=== PATIENT | female | born 2000 | race Caucasian/White ===

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

== ENCOUNTER 2021-06-21 10:42 | Inpatient (IN) | payer MEDICAID, OTHER ==
--- NOTE | 2021-06-21 11:09 | ED ---
General Adult HPI - General Stated complaint: mental health Time Seen by Provider: 06/21/21 10:43 Source: patient, RN notes reviewed, old records reviewed - History of Present Illness Initial comments: 20 yo female presenting for mental health evaluation. Patient had barricaded herself in the bathroom with a razor blade. She did not inflict any self-harm. She was uncooperative requiring police support during transport. She was transported by EMS. She denies ingestion. She is alert and oriented to time my evaluation. She has been petitioned by her grandmother for psychiatric evaluation. - Related Data Home Medications Medication Instructions Recorded Confirmed Escitalopram [Lexapro] 10 mg PO DAILY 06/21/21 06/21/21 Naproxen 500 mg PO BID 06/21/21 06/21/21 traMADol HCL 50 mg PO Q8H PRN 06/21/21 06/21/21 Allergies Allergy/AdvReac Type Severity Reaction Status Date / Time No Known Allergies Allergy Unverified 06/21/21 12:52 Review of Systems ROS Statement: Those systems with pertinent positive or pertinent negative responses have been documented in the HPI. ROS Other: All systems not noted in ROS Statement are negative. General Exam Limitations: physical limitation (She refuses physical exam) General appearance: alert Head exam: Present: atraumatic, normocephalic Eye exam: Present: normal appearance Neck exam: Present: normal inspection Respiratory exam: Absent: respiratory distress GI/Abdominal exam: Absent: distended Extremities exam: Present: normal inspection Neurological exam: Present: alert, oriented X3 Psychiatric exam: Present: agitated, anxious, suicidal ideation Skin exam: Present: warm, dry, intact Course Vital Signs 06/21/21 10:58 Pulse Rate 90 Respiratory 18 Rate Blood Pressure 132/74 O2 Sat by Pulse 100 Oximetry - Reevaluation(s) Reevaluation #1: 06/21/21 11:09 Clear for EPS Medical Decision Making - Medical Decision Making 20-year-old female presenting with depression, suicidal ideation. Initially not cooperative. She is petitioned. She is evaluated by EPS and felt to require i npatient psychiatric evaluation treatment. I do agree with this assessment. I completed a clinical certification on this patient. She will be admitted to this institution. Disposition Clinical Impression: Depression, Attempted suicide, Suicidal ideation Disposition: ADMITTED IP TO THIS HOSP Condition: Stable Is patient prescribed a controlled substance at d/c from ED?: No Referrals: Jose Martin Miles MD [Primary Care Provider] - 1-2 days Decision to Admit Reason: Admit from EC Decision Date: 06/21/21 Decision Time: 13:17
[2021-06-21] MEDS ORDERED: LORazepam 1 MG TAB PO STA (13:12)
[2021-06-21 13:29] LABS: Amphetamine Screen,Urine Not Detected (NotDetected); Barbiturate Screen,Urine Not Detected (NotDetected); Benzodiazepines Screen,Urine Not Detected (NotDetected); Cocaine Screen,Urine Not Detected (NotDetected); Methadone Screen, Urine Not Detected (NotDetected); Opiate Screen,Urine Not Detected (NotDetected); Oxycodone Screen, Urine Not Detected (NotDetected); Phencyclidine Screen,Urine Not Detected (NotDetected); Tricyclic Antidepressant,Urine Not Detected (NotDetected); Urn Cannabinoid Scrn Detected (NotDetected)
[2021-06-21] MEDS ORDERED: LORazepam 2 MG/ML INJ IM STA ×2 (14:43→18:55)
[2021-06-21] MEDS ORDERED: MAGNESIUM HYDROXIDE 2,400 MG/10 ML CUP PO PRN (15:03)
[2021-06-21] MEDS ORDERED: MAG HYDROX/AL HYDROX/SIMETH 30 ML CUP PO PRN (15:03)
[2021-06-21] MEDS ORDERED: HALOPERIDOL LACTATE 5 MG/ML 1 ML VIAL IM PRN (15:06)
[2021-06-21] MEDS ORDERED: haloperidoL 1 MG TAB PO PRN (15:06)
[2021-06-21] MEDS ORDERED: hydrOXYzine pamoate 25 MG CAP PO PRN (15:07)
[2021-06-21 15:52] LABS: Appearance,Urine Cloudy (Clear); Bacteria,Urine Rare /hpf; Bilirubin,Urine Negative (Negative); Blood,Urine Negative (Negative); Color,Urine Light Yellow; Glucose,Urine (UA) Negative (Negative); Hyaline Casts,Urine 1 /lpf (0-2); Ketones,Urine Negative (Negative); Leukocyte Esterase,Urine Negative (Negative); Mucus,Urine Rare /hpf; Nitrite,Urine Negative (Negative); PH, Urine 5.5 (5.0-8.0); Protein,Urine Negative (Negative); RBC,Urine 2 /hpf (0-5); Specific Gravity,Urine 1.015 (1.001-1.035); Squamous Epithelial Cell,Urine 9 /hpf (0-4); Urobilinogen,Urine <2.0 mg/dL (<2.0); WBC,Urine 7 /hpf (0-5)
[2021-06-21] MEDS ORDERED: chlorproMAZINE 25 MG/ML 2 ML AMP IM STA (18:55)
[2021-06-21] MEDS ORDERED: LORazepam 2 MG/ML INJ IM PRN (18:55)
[2021-06-21] MEDS ORDERED: LORazepam 1 MG TAB PO PRN (18:57)
[2021-06-21] MEDS ORDERED: chlorproMAZINE 25 MG TAB PO PRN (18:58)
[2021-06-21] MEDS ORDERED: chlorproMAZINE 25 MG/ML 2 ML AMP IM PRN (18:58)
--- NOTE | 2021-06-21 19:40 | P.MHFACE ---
Face to Face Restrain/Seclus - Evaluation Patient's Immediate Situation: Endangers self safety, Endangers others' safety, Endangers staff safety Patient's Immediate Situation - Comment: Discussed the case with the U RNs. The patient was seen at the bedside. The patient was reportedly being physically agressive, slamming objects against the garcia, and threatening to hurt the staff. Patient's Reaction to the Intervention: Appropriate, Calm Need to Continue or Terminate Restraint or Seclusion: Terminate Need to Continue or Terminate Restraint/Seclusion - Comment: Discussed with the patient the need to cooperate with the staffs instructions. The staff and the patient were able to come to agreement that her restraints can be discontinued. Face to Face Eval of Restraint Date: 06/21/21 Face to Face Eval of Restraint Time: 19:05
--- NOTE | 2021-06-22 07:43 | P.CON ---
Consult Note - . Consult date: 06/22/21 Assessment/Plan:: Medical consultation HPI 20-year-old female presented to the emergency department for mental health evaluation. Review of emergency room notes patient had barricaded herself in the bathroom with a razor blade, she did not inflict any self-harm during the episode. She was uncooperative coronary please for support for transport to the hospital. Patient was petitioned by grandmother for bizarre behavior over the last few days. 06/22/2021 Patient resting comfortably in bed. Patient answering questions with few word sentences. Patient moderate cooperative regarding events that occurred prior to admission to psychiatric unit. Patient denies fever, chills, chest pain, palpitations, shortness of breath, abdominal pain, nausea or vomiting diarrhea at this time. Patient agreeable to have diagnostic labs drawn. Physical exam General appearance: alert Head exam: Present: atraumatic, normocephalic Eye exam: Present: normal appearance Neck exam: Present: normal inspection Respiratory exam: Absent: respiratory distress GI/Abdominal exam: Absent: distended Extremities exam: Present: normal inspection Neurological exam: Present: alert, oriented X3 Psychiatric exam: Present: Anxious Skin exam: Present: warm, dry, intact Assessment: Depression Attempted suicide Suicidal ideation Plan: Obtain diagnostic labs to rule out metabolic causes for acute depression and suicidal ideation Once diagnostic labs are back we will review patient will be medically cleared We'll follow as an as needed basis
[2021-06-22] MEDS ORDERED: QUEtiapine 25 MG TAB PO PRN (11:20)
--- NOTE | 2021-06-22 11:34 | P.HP ---
Psychiatric H&P - . H&P Date: 06/22/21 History & Physical: Allergies Allergy/AdvReac Type Severity Reaction Status Date / Time No Known Allergies Allergy Unverified 06/21/21 12:52 Vital Signs Temp Pulse 122 H 06/21/21 18:43 Resp 20 06/21/21 18:43 BP 102/51 06/21/21 18:43 Pulse Ox 99 06/21/21 18:43 Intake & Output 06/21/21 06/22/21 06/22/21 18:59 06:59 18:59 Weight 40.823 kg Laboratory Last Values Urine Color Light Yellow 06/21/21 12:21 Urine Appearance Cloudy (Clear) H 06/21/21 12:21 Urine pH 5.5 (5.0-8.0) 06/21/21 12:21 Ur Specific [place] 1.015 (1.001-1.035) 06/21/21 12:21 Urine Protein Negative (Negative) 06/21/21 12:21 Urine Glucose (UA) Negative (Negative) 06/21/21 12:21 Urine Ketones Negative (Negative) 06/21/21 12:21 Urine Blood Negative (Negative) 06/21/21 12:21 Urine Nitrite Negative (Negative) 06/21/21 12:21 Urine Bilirubin Negative (Negative) 06/21/21 12:21 Urine Urobilinogen <2.0 mg/dL (<2.0) 06/21/21 12:21 Ur Leukocyte Esterase Negative (Negative) 06/21/21 12:21 Urine RBC 2 /hpf (0-5) 06/21/21 12:21 Urine WBC 7 /hpf (0-5) H 06/21/21 12:21 Ur Squamous Epith Cells 9 /hpf (0-4) H 06/21/21 12:21 Urine Bacteria Rare /hpf (None) H 06/21/21 12:21 Hyaline Casts 1 /lpf (0-2) 06/21/21 12:21 Urine Mucus Rare /hpf (None) H 06/21/21 12:21 Urine HCG, Qual Not Detected (Not Detectd) 06/21/21 12:21 Urine Opiates Screen Not Detected (NotDetected) 06/21/21 12:21 Ur Oxycodone Screen Not Detected (NotDetected) 06/21/21 12:21 Urine Methadone Screen Not Detected (NotDetected) 06/21/21 12:21 Ur Propoxyphene Screen Not Detected (NotDetected) 06/21/21 12:21 Ur Barbiturates Screen Not Detected (NotDetected) 06/21/21 12:21 U Tricyclic Antidepress Not Detected (NotDetected) 06/21/21 12:21 Ur Phencyclidine Scrn Not Detected (NotDetected) 06/21/21 12:21 Ur Amphetamines Screen Not Detected (NotDetected) 06/21/21 12:21 U Methamphetamines Scrn Not Detected (NotDetected) 06/21/21 12:21 U Benzodiazepines Scrn Not Detected (NotDetected) 06/21/21 12:21 Urine Cocaine Screen Not Detected (NotDetected) 06/21/21 12:21 U Marijuana (THC) Screen Detected (NotDetected) H 06/21/21 12:21 Coronavirus (PCR) Not Detected (Not Detectd) 06/21/21 14:01 06/22/21 11:25 IDENTIFYING DATA: Patient is a 20-year-old female who currently lives with her grandmother and mother and sisters in a house, currently works in a factory is unmarried and has no kids. HPI: Patient presented to the hospital yesterday by police escort and a petition filled out by grandmother. According to petition claims that her "multiple times she has threatened to kill herself. She had a razor blade in hand while threatening to kill herself. She has delusions and throws tantrums. Rage!" P etition also states that patient has been threatening to kill herself and has been throwing things in the house. Patient apparently was fairly aggressive with law enforcement and also when admitted to the unit involuntarily. Patient was given Thorazine and placed in restraints last night. Patient was seen by magazine writer this morning and agreeable to speak in the office. She has a UDS which is positive for marijuana. She claims that she "snapped at my family" and states that she is feeling pissed off. She states that she is "tired of they're bULLSHIT". Patient claims that her younger sister has been stealing her things and that she has been having several issues with her sister and also her mom and grandmother. She claims that all her belongings were broken including her bong. She claims that her mom is not supportive of her feelings and her situation and lets her and her sister fight. She states that she feels that no one cares about her feelings. She had rapid speech, was tangential and fairly intrusive and loud during the interview. She was labile as well and tearful and pleaded with magazine writer several times to be discharged today. She did admit to getting a razor blade and threatening to kill herself however states that she did not mean it and threw them away. She claims that she is filing charges against the police as they were aggressive with her. She claims that her mood is "fine" however with an incongruent affect. She is denying any anxiety at this time. She claims that her sleep and appetite are fair. Patient denies any suicidal or homicidal ideations intent or plan. At this time patient denies any auditory or visual hallucinations. she doess describe aa history of poor frustrartion tolerance and manic type episodes with mood swings. Patient admits to using marijuana heavily since the age of 15 every day. She denies any other recreational drug use. PAST PSYCHIATRIC HISTORY: Patient states that she has no psychiatric history. she claims that her pcp put her on lexapro 10 mg daily for her anxiety however states that shes been off it for 1 week as it was making her feel worst. Patient denies any previous psychiatric hospitalizations. She states that she went to [facility] dialysis social worker to times in the past for therapy. Patient denies any history of suicide attempts in the past. PMH:denies ALLERGIES: as per EMR CHEMICAL DEPENDENCY HISTORY: as per HPI FAMILY PSYCHIATRIC/SUBSTANCE USE HISTORY: States that her uncle committed suicide. SOCIAL HISTORY: Patient was born and raised in [place] [place]. She states that she completed high school. She claims that she is currently working at a factory. She has plans to go to University afterwards. She currently lives with her grandmother mother in a house. She is unmarried and has no kids. She denies any legal history. MENTAL STATUS EXAM: General Appearance: Patient appears to be short in stature, disheveled, stated age is alert, intrusive and aggressive at times. Patient appears to have poor hygiene and grooming. Behavior: Patient is seated. Aggressive and difficult to redirect Speech: Patient's speech is fluent and nonpressured. Rapid speech. Mood/Affect: Patient reports their mood is "okay", affect is incongruent and labile Suicidality/Homicidality: Patient denies having any homicidal ideation intent or plan. Denies any suicidal ideations intent or plan Perceptions: Patient denies any visual hallucinations and denies any auditory hallucinations Though content/process: focused on discharge, poor insight, rambles, tangential. Memory and concentration: AOX3, grossly intact for the purposes of this session. Can spell "WORLD" backwards Judgment and insight: poor STRENGTHS/WEAKNESSES: strength is that patient is resilient. Weakness is that patient has poor judgment and is impulsive INTELLECT: average IMPRESSIONS: Bipolar disorder, current episode manic, without psychotic features Cannabis use disorder PLAN: -Patient is admitted under involuntary status to [facility] for stabilization of psychiatric symptoms and safety. Patient has not signed adult voluntary form and medication consent and is placed in patient's chart. A second certification was completed and along with petition will be filed for court. -Medications : Will start patient on Seroquel 25 mg daily at bedtime for insomnia/mood stabilization with 25 mg when necessary. Start lithium 150 mg 3 times a day for mood stabilization. -Ativan and Thorazine PRN for agitation/aggression -Patient was informed of the risks, benefits and side effects of the medication -Internal Medicine consult to perform medical evaluation and physical. -NRT - not needed as patient does not smoke -SW on board for discharge planning. Encourage patient to participate in groups to work on coping skills. Will await deferral and court date.
[2021-06-22] MEDS: LITHIUM CARBONATE 150 MG CAP PO SCH ×3 (12:15→21:00)
[2021-06-22 13:02] VITALS: BMI 18.8
[2021-06-22] MEDS: QUEtiapine 25 MG TAB PO SCH (21:00)
[2021-06-23] MEDS: LITHIUM CARBONATE 150 MG CAP PO SCH ×3 (08:21→21:08)
[2021-06-23 08:46] LABS: Basophils % (A) 0 %; Eosinophils # (A) 0.2 k/uL (0-0.7); Eosinophils % (A) 1 %; HCT 45.2 % (34.0-46.0); HGB 15.1 gm/dL (11.4-16.0); Lymphocytes # (A) 2.6 k/uL (1.0-4.8); Lymphocytes % (A) 22 %; MCH 31.2 pg (25.0-35.0); MCHC 33.3 g/dL (31.0-37.0); MCV 93.6 fL (80.0-100.0); Monocytes # (A) 0.5 k/uL (0-1.0); Monocytes % (A) 4 %; Neutrophils # (A) 8.1 k/uL (1.3-7.7); Neutrophils % (A) 71 %; Platelet Count 272 k/uL (150-450); RBC 4.83 m/uL (3.80-5.40); RDW 12.1 % (11.5-15.5); WBC 11.5 k/uL (4.0-11.0)
[2021-06-23 08:57] LABS: ALT 26 U/L (4-34); AST 67 U/L (14-36); African American GFR (CKD) >90 (>60 ml/min/1.73 sqM); Albumin 4.6 g/dL (3.5-5.0); Alkaline Phosphatase 64 U/L (38-126); Anion Gap 12 mmol/L; Blood Urea Nitrogen 16 mg/dL (7-17); Calcium 9.9 mg/dL (8.4-10.2); Carbon Dioxide 20 mmol/L (22-30); Chloride 104 mmol/L (98-107); Glucose 86 mg/dL (74-99); Non-African American GFR(CKD) >90 (>60 ml/min/1.73 sqM); Potassium 3.7 mmol/L (3.5-5.1); Sodium 136 mmol/L (137-145); Total Protein 7.5 g/dL (6.3-8.2)
[2021-06-23 10:04] LABS: Bilirubin, Delta 0.2 mg/dL (0.0-0.2); Bilirubin,Unconjugated 1.3 mg/dL (0.0-1.1); Total Bilirubin 1.6 mg/dL (0.2-1.3)
[2021-06-23] MEDS ORDERED: IBUPROFEN 600 MG TAB PO PRN (10:10)
--- NOTE | 2021-06-23 10:21 | P.PN ---
Progress Note - Text Progress Note Date: 06/23/21 Interval History: Patient was seen [wandering the hallways] and was directable and agreeable to speak with telegraphic typewriter installer in the office. [ Patient continues to be argumentative with telegraphic typewriter installer and very focused on discharge. She continues to be minimizing her need for hospitalization or need for treatment. She has been taking her lithium and Seroquel. She states that her mood is more stable at this time however was continuing to rationalize her behavior and the events that occur prior to her coming into the hospital. She was requesting to go on her cell phone and take the numbers of her grandmother and also her sister. She claims that she has not been going to any groups. She thinks that she wants to speak with her dust collector ore crushing today. She also spoke about her WEB COMMUNICATIONS SPECIALIST appointment and spoke about her "cysts" in her ovaries]. She claims that her mood is "fine" however affect was incongruent. She states that she slept fairly last night with the Seroquel At this time patient denies any suicidal or homical ideations, intent or plan. Patient denies any auditory, visual hallucinations and denies any paranoia or delusions. Patient denies any side effects from the medications and has been compliant with meds. continues to be superficial and have poor insight. Mental Status Exam: General Appearance: Patient appears to be short in stature, stated age is alert, argumentative. Patient appears to have improving mildly hygiene and grooming. Behavior: Patient is seated. Aggressive and difficult to redirect. argumentative. superficial Speech: Patient's speech is fluent and nonpressured. Rapid speech. Mood/Affect: Patient reports their mood is "fine", affect is incongruent and Suicidality/Homicidality: Patient denies having any homicidal ideation intent or plan. Denies any suicidal ideations intent or plan Perceptions: Patient denies any visual hallucinations and denies any auditory hallucinations Though content/process: focused on discharge, poor insight, rambles, tangential. Memory and concentration: AOX3, grossly intact for the purposes of this session Judgment and insight: poor/superficial Assessment Bipolar disorder, current episode manic, without psychotic features borderline personality traits Cannabis use disorder Plan: -Patient continues to meet criteria for inpatient psychiatric admission for symptom stabilization and safety. Patient has [not] signed [adult voluntary form and] [medication consent] and was placed in patient's chart. -Medications: continue with Seroquel 25 mg daily at bedtime for insomnia/mood stabilization with 25 mg when necessary. lithium 150 mg 3 times a day for mood stabilization. will check [place] level sunday. -When necessary Ativan and Haldol for agitation/aggression. -NRT - not needed as patient does not smoke -SW on board for discharge planning. Encouraged the patient to participate in milieu. Patient has deferral set for tomorrow with her defense attorney and full court hearing on 07/06.Likely discharge sunday after we check lithium level.
[2021-06-23] MEDS: ACETAMINOPHEN TAB 325 MG TAB PO PRN (14:42)
[2021-06-23 17:33] LABS: Chol/HDL Ratio 3.25 Ratio; LDL Cholesterol,Calculated 109.3 mg/dL (0.0-131.0); VLDL Calculation 18.08 mg/dL (5.00-40.00)
[2021-06-23] MEDS: QUEtiapine 25 MG TAB PO SCH (21:08)
[2021-06-24] MEDS: LITHIUM CARBONATE 150 MG CAP PO SCH (08:15)
--- NOTE | 2021-06-24 09:56 | P.PN ---
Progress Note - Text Progress Note Date: 06/24/21 Interval History: Patient was seen sitting in on group this morning and was directable and agree able to speak with show card writer in the office. Patient continues to state that she feels that she is scared being here in the hospital and was still focused on discharge however was a lot more agreeable to stay and have her medications changed. She states that she is concerned because she feels that "I can't cry anymore" and states that she does not feel normal while taking the lithium. She was requesting to have a decreased. She asked several questions about the lithium and Seroquel today. She claims that she initially fell asleep last night however awoke and found it difficult to go back to sleep. She claims that her mood is "better" and claims that her anxiety is also more under control. She is agreeable to stay over the weekend. She claims that she has been going to groups and attempting to participate. She was requesting to get the numbers from her cell phone of her sisters and called him today. She denies any suicidal or homical ideations, intent or plan. Patient denies any auditory, visual hallucinations and denies any paranoia or delusions. Patient denies any side effects from the medications and has been compliant with meds. Claims that she most liekly will be signing the deferral today with her tierce filler. Mental Status Exam: General Appearance: Patient appears to be short in stature, stated age is alert, argumentative. Patient appears to have improving mildly hygiene and grooming. Behavior: Patient is seated. Aggressive and difficult to redirect. more directable and cooperative today. Speech: Patient's speech is fluent and nonpressured. Mood/Affect: Patient reports their mood is "a bit better", affect is congruent and constricted Suicidality/Homicidality: Patient denies having any homicidal ideation intent or plan. Denies any suicidal ideations intent or plan Perceptions: Patient denies any visual hallucinations and denies any auditory hallucinations Though content/process: focused on discharge, imprivng insight. focused on her meds. Memory and concentration: AOX3, grossly intact for the purposes of this session Judgment and insight: poor/superficial, improving mildly Assessment Bipolar disorder, current episode manic, without psychotic features borderline personality traits Cannabis use disorder Plan: -Patient continues to meet criteria for inpatient psychiatric admission for symptom stabilization and safety. Patient has [not] signed [adult voluntary form and] [medication consent] and was placed in patient's chart. -Medications: continue with Seroquel 25 mg daily at bedtime for insomnia/mood stabilization with 25 mg when necessary. decrease and changed lithium 300 mg qhs for mood stabilization. will check [place] level sunday morning. added melatonin 3 mg qhs for insomnia -When necessary Ativan and Haldol for agitation/aggression. -NRT - not needed as patient does not smoke -SW on board for discharge planning. Encouraged the patient to participate in milieu. Patient has deferral today and full court hearing on 07/06. Likely p[place]an sunday morning after we check lithium level.
[2021-06-24] MEDS ORDERED: LITHIUM CARBONATE ER 450 MG TABLET.ER PO SCH (21:00)
[2021-06-24] MEDS ORDERED: QUEtiapine 50 MG TAB PO SCH (21:00)
[2021-06-24] MEDS: QUEtiapine 25 MG TAB PO SCH (22:54)
[2021-06-24] MEDS: LITHIUM CARBONATE 300 MG CAP PO SCH (22:54)
[2021-06-24] MEDS: MELATONIN 3 MG TABLET PO SCH (23:42)
--- NOTE | 2021-06-25 10:37 | P.PN ---
Progress Note - Text Progress Note Date: 06/25/21 Interval History: Patient was seen wandering the hallways this morning and was directable and ag reeable to speak with singer songwriter in the office. Patient appears to be more directable today and cooperative with interview. She states that she slept better last night however stayed up later with other patients watching movies. She states that the melatonin did help her. She claims that she is doing better on her medications at this time and "getting used to them". She wants remain on the same dose of lithium and Seroquel. She states that she is looking forward to speaking with her mother as she is visiting today. She was reminded of the blood draw for lithium level tomorrow morning. She claims that her anxiety and mood has been improving. She denies any suicidal or homical ideations, intent or plan. Patient denies any auditory, visual hallucinations and denies any paranoia or delusions. Patient denies any side effects from the medications and has been compliant with meds. Mental Status Exam: General Appearance: Patient appears to be short in stature, stated age is alert, more directable today. Patient appears to have improving mildly hygiene and grooming. Behavior: Patient is seated. Aggressive and difficult to redirect. more directable and cooperative today. Speech: Patient's speech is fluent and nonpressured. Mood/Affect: Patient reports their mood is "better", affect is congruent and constricted Suicidality/Homicidality: Patient denies having any homicidal ideation intent or plan. Denies any suicidal ideations intent or plan Perceptions: Patient denies any visual hallucinations and denies any auditory hallucinations Though content/process: focused on discharge, imprivng insight. Goal oriented. Logical. Memory and concentration: AOX3, grossly intact for the purposes of this session Judgment and insight: improving mildly Assessment Bipolar disorder, current episode manic, without psychotic features borderline personality traits Cannabis use disorder Plan: -Patient continues to meet criteria for inpatient psychiatric admission for symptom stabilization and safety. Patient has [not] signed [adult voluntary form and] [medication consent] and was placed in patient's chart. -Medications: continue with Seroquel 25 mg daily at bedtime for insomnia/mood stabilization with 25 mg when necessary. lithium 300 mg qhs for mood stabilization. will check [place] level sunday morning. melatonin 3 mg qhs for insomnia -When necessary Ativan and Haldol for agitation/aggression. -NRT - not needed as patient does not smoke -SW on board for discharge planning. Encouraged the patient to participate in milieu. PAtient signed deferral with assistant district attorney. Likely discharge sunday morning after we check lithium level
[2021-06-25] MEDS: LITHIUM CARBONATE 300 MG CAP PO SCH (23:24)
[2021-06-25] MEDS: QUEtiapine 25 MG TAB PO SCH (23:24)
[2021-06-25] MEDS: MELATONIN 3 MG TABLET PO SCH (23:26)
[2021-06-26] MEDS: ACETAMINOPHEN TAB 325 MG TAB PO PRN (08:29)
--- NOTE | 2021-06-26 11:12 | P.PN ---
Progress Note - Text Progress Note Date: 06/26/21 Interval History: Patient was seen wandering the hallways this morning and was directable and ag reeable to speak with adjusto writer operator. Patient appears to be more directable today and cooperative with interview. She claims that she gave blood this morning and that they "blew my pain" and showed adjusto writer operator a swelling around her vein in her arm. She claims that she slept better last night however did report symptoms of reflux. She claims that she spoke with her mother yesterday and is anticipating discharge tomorrow. She states that the conversation went well with her mother and she misses her a lot. She states that her mood and anxiety of an improving. She claims that she is going to groups and Attempting to participate as best as she can. She wants remain on the same dose of lithium and Seroquel. She denies any suicidal or homical ideations, intent or plan. Patient denies any auditory, visual hallucinations and denies any paranoia or delusions. Patient denies any side effects from the medications and has been compliant with meds. Mental Status Exam: General Appearance: Patient appears to be short in stature, stated age is alert, more directable today. Patient appears to have improving mildly hygiene and grooming. Behavior: Patient is seated. Aggressive and difficult to redirect. more directable and cooperative today. Speech: Patient's speech is fluent and nonpressured. Mood/Affect: Patient reports their mood is "good", affect is congruent and constricted Suicidality/Homicidality: Patient denies having any homicidal ideation intent or plan. Denies any suicidal ideations intent or plan Perceptions: Patient denies any visual hallucinations and denies any auditory hallucinations Though content/process: focused on discharge, imprivng insight. Goal oriented. Logical. Memory and concentration: AOX3, grossly intact for the purposes of this session Judgment and insight: improving mildly Assessment Bipolar disorder, current episode manic, without psychotic features borderline personality traits Cannabis use disorder Plan: -Patient continues to meet criteria for inpatient psychiatric admission for symptom stabilization and safety. Patient has [not] signed [adult voluntary form and] [medication consent] and was placed in patient's chart. -Medications: continue with Seroquel 25 mg daily at bedtime for insomnia/mood stabilization with 25 mg when necessary. lithium 300 mg qhs for mood stabilization. melatonin 3 mg qhs for insomnia -[place] level 0.5 on 06/26 -When necessary Ativan and Haldol for agitation/aggression. -NRT - not needed as patient does not smoke -SW on board for discharge planning. Encouraged the patient to participate in milieu. PAtient signed deferral with civil litigation attorney. Likely discharge sunday
[2021-06-26] MEDS: LITHIUM CARBONATE 300 MG CAP PO SCH (22:38)
[2021-06-26] MEDS: QUEtiapine 25 MG TAB PO SCH (22:38)
[2021-06-26] MEDS: MELATONIN 3 MG TABLET PO SCH (22:39)
[2021-06-27 00:12] VITALS: BP 117/80; PULSE 76; RESP 12; TEMP 97.6
--- NOTE | 2021-06-27 10:42 | P.DS ---
Providers Date of admission: 06/21/21 15:01 Expected date of discharge: 06/27/21 Attending physician: Anmol Dwyer MD Consults: 06/21/21 15:03 Consult Physician Routine Consulting Provider: Jose Martin Miles Consult Reason/Comments: Medical Management Do you want consulting provider notified?: Yes Primary care physician: Jose Martin Zuñiga Jd - Discharge Diagnosis(es) (1) Bipolar disorder, manic phase Current Visit: Yes Status: Acute Priority: High (2) Borderline personality disorder Current Visit: Yes Status: Acute Priority: Medium (3) Cannabis use disorder, mild, abuse Current Visit: Yes Status: Acute Priority: Low Hospital Course: Admission HPI: Admission note was completed by senior writer "Patient is a 20-year-old female who currently lives with her grandmother and mother and sisters in a house, currently works in a factory is unmarried and has no kids. Patient presented to the hospital yesterday by police escort and a petition filled out by grandmother. According to petition claims that her "multiple times she has threatened to kill herself. She had a razor blade in hand while threatening to kill herself. She has delusions and throws tantrums. Rage!" Petition also states that patient has been threatening to kill herself and has been throwing things in the house. Patient apparently was fairly aggressive with law enforcement and also when admitted to the unit involuntarily. Patient was given Thorazine and placed in restraints last night. Patient was seen by senior writer this morning and agreeable to speak in the office. She has a UDS which is positive for marijuana. She claims that she "snapped at my family" and states that she is feeling pissed off. She states that she is "tired of they're bULLSHIT". Patient claims that her younger sister has been stealing her things and that she has been having several issues with her sister and also her mom and grandmother. She claims that all her belongings were broken including her bong. She claims that her mom is not supportive of her feelings and her situation and lets her and her sister fight. She states that she feels that no one cares about her feelings. She had rapid speech, was tangential and fairly intrusive and loud during the interview. She was labile as well and tearful and pleaded with wr iter several times to be discharged today. She did admit to getting a razor blade and threatening to kill herself however states that she did not mean it and threw them away. She claims that she is filing charges against the police as they were aggressive with her. She claims that her mood is "fine" however with an incongruent affect. She is denying any anxiety at this time. She claims that her sleep and appetite are fair. Patient denies any suicidal or homicidal ideations intent or plan. At this time patient denies any auditory or visual hallucinations. she doess describe aa history of poor frustrartion tolerance and manic type episodes with mood swings. Patient admits to using marijuana heavily since the age of 15 every day. She denies any other recreational drug use." Hospital course: Upon admission to the unit patient was admitted involuntarily on a petition and certificate and a second certificate was completed and faxed with the courts. Patient ended up signing a deferral with the assistant county attorney and agreeing to treatment. Patient initially was aggressive, agitated and combative and was restrained and given PRN medications when she first arrived onto the unit. With Tx, she progressively got along well with other patients on the unit and followed unit protocol. Patient was compliant with the medications and denied any side effects throughout hospital course. Patient was started on lithium and titrated up to a dose of 300 mg daily at bedtime for mood stabilization. Patient was also started on Seroquel titrated up to a dose of 25 mg daily at bedtime for mood stabilization/insomnia. Patient spoke of her stressors and engaged in therapy both group and individual. Patient was also seen by medical team for history and physical exam. Patient had a lithium level drawn on 06/26 which was 0.5 Throughout the course of the hospitalization patient gradually improved with regards to mood, anxiety, sleep and became more future oriented with improved insight and judgment. On the day of discharge patient denied any suicidal or homicidal ideations intent or plan denied any auditory or visual hallucinations. Patient endorsed wanting to live for her family and her future. The patient denied any access to guns or weapons. Patient denied any paranoia and did not endorse any delusions. Patient does have a significant history of substance abuse and was counseled on abstaining from all substances including alcohol and marijuana. Patient elected to do outpatient substance use treatment program through [facility]. Patient was also counseled on the medications and need for regular compliance and was encouraged to follow-up with their outpatient appointment for mental health and also for primary care. Prior to discharge a family meeting will be arranged by social sciences instructor to answer any questions and ensure safety upon discharge. Mental status exam: General Appearance: Patient appears to be short in stature, stated age is alert, pleasant, and cooperative. Patient is in no acute distress and has improved hygiene and grooming Behavior: Patient is calmly seated without any agitated behavior. Speech: Patient's speech is fluent and nonpressured. Mood/Affect: Patient reports their mood is "better", affect is congruent and euthymic. Suicidality/Homicidality: Patient denies having any suicidal or homicidal ideation intent or plan. Perceptions: Patient denies any auditory or visual hallucinations. Though content/process: There is no evidence of any delusional thought content and thought process is linear and goal-directed. more future oriented Memory and concentration: AOX3, grossly intact for the purposes of this session. Can spell "WORLD" backwards correctly. Judgment and insight: improved with guarded prognosis Impression: Bipolar disorder, currently in manic phase Borderline personality disorder Cannabis use disorder Plan: -Continue with discharge today as patient has improved and stabilized psychiatrically and is not currently an imminent threat to herself and/or others. Patient will remain at chronically elevated risk for harm to self and/or others due to her impulsivity and substance abuse. -Continue medications: Seroquel 25 mg daily at bedtime for insomnia/mood stabilization. [place] 300 mg daily at bedtime for mood stabilization. -Patient was counseled on the need for medication compliance and appropriate follow-up at mental health and also primary care for medical issues. Patient verbalized understanding and agreed. -Social work to arrange for and conduct family meeting to ensure safety upon discharge and answer any questions/concerns. Social work also to arrange for patients follow up appointments with [facility] for psychiatric care along with follow up with primary care provider. -Patient counseled on abstaining from recreational drugs and marijuana and alcohol. Was informed/educated on the adverse effects on their physical and mental health. Patient verbally agreed and understood. -Patient was instructed to return to the hospital or seek immediate medical care if their psychiatric or medical symptoms do worsen or reoccur. Vital Signs Temp 97.6 F 06/27/21 00:11 Pulse 76 06/27/21 00:11 Resp 12 06/27/21 00:11 BP 117/80 06/27/21 00:11 Pulse Ox 99 06/26/21 06:57 Intake & Output 06/26/21 06/27/21 06/27/21 18:59 06:59 18:59 Weight 48.4 kg Allergies Allergy/AdvReac Type Severity Reaction Status Date / Time No Known Allergies Allergy Unverified 06/21/21 12:52 Laboratory Results WBC 11.5 k/uL (4.0-11.0) H 06/23/21 08:31 RBC 4.83 m/uL (3.80-5.40) 06/23/21 08:31 Hgb 15.1 gm/dL (11.4-16.0) 06/23/21 08:31 Hct 45.2 % (34.0-46.0) 06/23/21 08:31 MCV 93.6 fL (80.0-100.0) 06/23/21 08:31 MCH 31.2 pg (25.0-35.0) 06/23/21 08:31 MCHC 33.3 g/dL (31.0-37.0) 06/23/21 08:31 RDW 12.1 % (11.5-15.5) 06/23/21 08:31 Plt Count 272 k/uL (150-450) 06/23/21 08:31 MPV 8.0 06/23/21 08:31 Neutrophils % 71 % 06/23/21 08:31 Lymphocytes % 22 % 06/23/21 08:31 Monocytes % 4 % 06/23/21 08:31 Eosinophils % 1 % 06/23/21 08:31 Basophils % 0 % 06/23/21 08:31 Neutrophils # 8.1 k/uL (1.3-7.7) H 06/23/21 08:31 Lymphocytes # 2.6 k/uL (1.0-4.8) 06/23/21 08:31 Monocytes # 0.5 k/uL (0-1.0) 06/23/21 08:31 Eosinophils # 0.2 k/uL (0-0.7) 06/23/21 08:31 Basophils # 0.0 k/uL (0-0.2) 06/23/21 08:31 Sodium 136 mmol/L (137-145) L 06/23/21 08:31 Potassium 3.7 mmol/L (3.5-5.1) 06/23/21 08:31 Chloride 104 mmol/L (98-107) 06/23/21 08:31 Carbon Dioxide 20 mmol/L (22-30) L 06/23/21 08:31 Anion Gap 12 mmol/L 06/23/21 08:31 BUN 16 mg/dL (7-17) 06/23/21 08:31 Creatinine 0.79 mg/dL (0.52-1.04) 06/23/21 08:31 Est GFR (CKD-EPI)AfAm >90 (>60 ml/min/1.73 sqM) 06/23/21 08:31 Est GFR (CKD-EPI)NonAf >90 (>60 ml/min/1.73 sqM) 06/23/21 08:31 Glucose 86 mg/dL (74-99) 06/23/21 08:[address] Glu mg/dL 97 06/23/21 08:31 Hemoglobin A1c 5.0 % (4.0-6.0) 06/23/21 08:31 Calcium 9.9 mg/dL (8.4-10.2) 06/23/21 08:31 Total Bilirubin 1.6 mg/dL (0.2-1.3) H 06/23/21 08:31 Conjugated Bilirubin 0.0 mg/dL (0.0-0.3) 06/23/21 08:31 Unconjugated Bilirubin 1.3 mg/dL (0.0-1.1) H 06/23/21 08:31 Delta Bilirubin 0.2 mg/dL (0.0-0.2) 06/23/21 08:31 AST 67 U/L (14-36) H 06/23/21 08:31 ALT 26 U/L (4-34) 06/23/21 08:31 Alkaline Phosphatase 64 U/L (38-126) 06/23/21 08:31 Total Protein 7.5 g/dL (6.3-8.2) 06/23/21 08:31 Albumin 4.6 g/dL (3.5-5.0) 06/23/21 08:31 Triglycerides 90.40 mg/dL (0.00-149.00) 06/23/21 08:31 Cholesterol 184.00 mg/dL (0.00-200.00) 06/23/21 08:31 LDL Cholesterol, Calc 109.3 mg/dL (0.0-131.0) 06/23/21 08:31 VLDL Cholesterol, Calc 18.08 mg/dL (5.00-40.00) 06/23/21 08: HDL Cholesterol 56.60 mg/dL (40.00-60.00) 06/23/21 08: Cholesterol/HDL Ratio 3.25 Ratio 06/23/21 08: TSH 2.210 mIU/L (0.465-4.680) 06/23/21 08:31 Urine Color Light Yellow 06/21/21 12: Urine Appearance Cloudy (Clear) H 06/21/21 12:21 Urine pH 5.5 (5.0-8.0) 06/21/21 12:21 Ur Specific [place] 1.015 (1.001-1.035) 06/21/21 12:21 Urine Protein Negative (Negative) 06/21/21 12:21 Urine Glucose (UA) Negative (Negative) 06/21/21 12:21 Urine Ketones Negative (Negative) 06/21/21 12:21 Urine Blood Negative (Negative) 06/21/21 12:21 Urine Nitrite Negative (Negative) 06/21/21 12:21 Urine Bilirubin Negative (Negative) 06/21/21 12:21 Urine Urobilinogen <2.0 mg/dL (<2.0) 06/21/21 12:21 Ur Leukocyte Esterase Negative (Negative) 06/21/21 12:21 Urine RBC 2 /hpf (0-5) 06/21/21 12:21 Urine WBC 7 /hpf (0-5) H 06/21/21 12:21 Ur Squamous Epith Cells 9 /hpf (0-4) H 06/21/21 12:21 Urine Bacteria Rare /hpf (None) H 06/21/21 12:21 Hyaline Casts 1 /lpf (0-2) 06/21/21 12:21 Urine Mucus Rare /hpf (None) H 06/21/21 12:21 Urine HCG, Qual Not Detected (Not Detectd) 06/21/21 12:21 Urine Opiates Screen Not Detected (NotDetected) 06/21/21 12:21 Ur Oxycodone Screen Not Detected (NotDetected) 06/21/21 12:21 Urine Methadone Screen Not Detected (NotDetected) 06/21/21 12:21 Ur Propoxyphene Screen Not Detected (NotDetected) 06/21/21 12:21 Ur Barbiturates Screen Not Detected (NotDetected) 06/21/21 12:21 U Tricyclic Antidepress Not Detected (NotDetected) 06/21/21 12:21 Ur Phencyclidine Scrn Not Detected (NotDetected) 06/21/21 12:21 Ur Amphetamines Screen Not Detected (NotDetected) 06/21/21 12:21 U Methamphetamines Scrn Not Detected (NotDetected) 06/21/21 12:21 U Benzodiazepines Scrn Not Detected (NotDetected) 06/21/21 12:21 [place] 0.5 mmol/L 06/26/21 06:54 Urine Cocaine Screen Not Detected (NotDetected) 06/21/21 12:21 U Marijuana (THC) Screen Detected (NotDetected) H 06/21/21 12:21 Coronavirus (PCR) Not Detected (Not Detectd) 06/21/21 14:01 Laboratory Results WBC 11.5 k/uL (4.0-11.0) H 06/23/21 08:31 RBC 4.83 m/uL (3.80-5.40) 06/23/21 08:31 Hgb 15.1 gm/dL (11.4-16.0) 06/23/21 08:31 Hct 45.2 % (34.0-46.0) 06/23/21 08:31 MCV 93.6 fL (80.0-100.0) 06/23/21 08:31 MCH 31.2 pg (25.0-35.0) 06/23/21 08:31 MCHC 33.3 g/dL (31.0-37.0) 06/23/21 08:31 RDW 12.1 % (11.5-15.5) 06/23/21 08:31 Plt Count 272 k/uL (150-450) 06/23/21 08:31 MPV 8.0 06/23/21 08:31 Neutrophils % 71 % 06/23/21 08:31 Lymphocytes % 22 % 06/23/21 08:31 Monocytes % 4 % 06/23/21 08:31 Eosinophils % 1 % 06/23/21 08:31 Basophils % 0 % 06/23/21 08:31 Neutrophils # 8.1 k/uL (1.3-7.7) H 06/23/21 08:31 Lymphocytes # 2.6 k/uL (1.0-4.8) 06/23/21 08:31 Monocytes # 0.5 k/uL (0-1.0) 06/23/21 08:31 Eosinophils # 0.2 k/uL (0-0.7) 06/23/21 08:31 Basophils # 0.0 k/uL (0-0.2) 06/23/21 08:31 Sodium 136 mmol/L (137-145) L 06/23/21 08:31 Potassium 3.7 mmol/L (3.5-5.1) 06/23/21 08:31 Chloride 104 mmol/L (98-107) 06/23/21 08:31 Carbon Dioxide 20 mmol/L (22-30) L 06/23/21 08:31 Anion Gap 12 mmol/L 06/23/21 08:31 BUN 16 mg/dL (7-17) 06/23/21 08:31 Creatinine 0.79 mg/dL (0.52-1.04) 06/23/21 08:31 Est GFR (CKD-EPI)AfAm >90 (>60 ml/min/1.73 sqM) 06/23/21 08:31 Est GFR (CKD-EPI)NonAf >90 (>60 ml/min/1.73 sqM) 06/23/21 08:31 Glucose 86 mg/dL (74-99) 06/23/21 08:[address] Glu mg/dL 97 06/23/21 08:31 Hemoglobin A1c 5.0 % (4.0-6.0) 06/23/21 08:31 Calcium 9.9 mg/dL (8.4-10.2) 06/23/21 08:31 Total Bilirubin 1.6 mg/dL (0.2-1.3) H 06/23/21 08:31 Conjugated Bilirubin 0.0 mg/dL (0.0-0.3) 06/23/21 08:31 Unconjugated Bilirubin 1.3 mg/dL (0.0-1.1) H 06/23/21 08:31 Delta Bilirubin 0.2 mg/dL (0.0-0.2) 06/23/21 08:31 AST 67 U/L (14-36) H 06/23/21 08:31 ALT 26 U/L (4-34) 06/23/21 08:31 Alkaline Phosphatase 64 U/L (38-126) 06/23/21 08:31 Total Protein 7.5 g/dL (6.3-8.2) 06/23/21 08:31 Albumin 4.6 g/dL (3.5-5.0) 06/23/21 08:31 Triglycerides 90.40 mg/dL (0.00-149.00) 06/23/21 08:31 Cholesterol 184.00 mg/dL (0.00-200.00) 06/23/21 08:31 LDL Cholesterol, Calc 109.3 mg/dL (0.0-131.0) 06/23/21 08:31 VLDL Cholesterol, Calc 18.08 mg/dL (5.00-40.00) 06/23/21 08:31 HDL Cholesterol 56.60 mg/dL (40.00-60.00) 06/23/21 08:31 Cholesterol/HDL Ratio 3.25 Ratio 06/23/21 08:31 TSH 2.210 mIU/L (0.465-4.680) 06/23/21 08:31 Urine Color Light Yellow 06/21/21 12:21 Urine Appearance Cloudy (Clear) H 06/21/21 12:21 Urine pH 5.5 (5.0-8.0) 06/21/21 12: Ur Specific [place] 1.015 (1.001-1.035) 06/21/21 12:21 Urine Protein Negative (Negative) 06/21/21 12: Urine Glucose (UA) Negative (Negative) 06/21/21 12:21 Urine Ketones Negative (Negative) 06/21/21 12:21 Urine Blood Negative (Negative) 06/21/21 12:21 Urine Nitrite Negative (Negative) 06/21/21 12:21 Urine Bilirubin Negative (Negative) 06/21/21 12:21 Urine Urobilinogen <2.0 mg/dL (<2.0) 06/21/21 12:21 Ur Leukocyte Esterase Negative (Negative) 06/21/21 12:21 Urine RBC 2 /hpf (0-5) 06/21/21 12:21 Urine WBC 7 /hpf (0-5) H 06/21/21 12:21 Ur Squamous Epith Cells 9 /hpf (0-4) H 06/21/21 12:21 Urine Bacteria Rare /hpf (None) H 06/21/21 12:21 Hyaline Casts 1 /lpf (0-2) 06/21/21 12:21 Urine Mucus Rare /hpf (None) H 06/21/21 12:21 Urine HCG, Qual Not Detected (Not Detectd) 06/21/21 12:21 Urine Opiates Screen Not Detected (NotDetected) 06/21/21 12:21 Ur Oxycodone Screen Not Detected (NotDetected) 06/21/21 12:21 Urine Methadone Screen Not Detected (NotDetected) 06/21/21 12:21 Ur Propoxyphene Screen Not Detected (NotDetected) 06/21/21 12:21 Ur Barbiturates Screen Not Detected (NotDetected) 06/21/21 12:21 U Tricyclic Antidepress Not Detected (NotDetected) 06/21/21 12:21 Ur Phencyclidine Scrn Not Detected (NotDetected) 06/21/21 12:21 Ur Amphetamines Screen Not Detected (NotDetected) 06/21/21 12:21 U Methamphetamines Scrn Not Detected (NotDetected) 06/21/21 12:21 U Benzodiazepines Scrn Not Detected (NotDetected) 06/21/21 12:21 [place] 0.5 mmol/L 06/26/21 06:54 Urine Cocaine Screen Not Detected (NotDetected) 06/21/21 12:21 U Marijuana (THC) Screen Detected (NotDetected) H 06/21/21 12:21 Coronavirus (PCR) Not Detected (Not Detectd) 06/21/21 14:01 Patient Condition at Discharge: Stable Plan - Discharge Summary New Discharge Prescriptions: New Melatonin 3 mg PO HS 30 Days tablet [place] Carbonate 300 mg PO HS 30 Days cap QUEtiapine [SEROquel] 25 mg PO HS 30 Days tab Acetaminophen Tab [Tylenol] 650 mg PO Q4HR PRN tab PRN Reason: Pain/Discomfort Discontinued Escitalopram [Lexapro] 10 mg PO DAILY traMADol HCL 50 mg PO Q8H PRN PRN Reason: Pain Naproxen 500 mg PO BID Discharge Medication List Acetaminophen Tab [Tylenol] 650 mg PO Q4HR PRN tab 06/27/21 [Rx] [place] Carbonate 300 mg PO HS 30 Days cap 06/27/21 [Rx] Melatonin 3 mg PO HS 30 Days tablet 06/27/21 [Rx] QUEtiapine [SEROquel] 25 mg PO HS 30 Days tab 06/27/21 [Rx] Follow up Appointment(s)/Referral(s): [facility] [Outside] - 06/27/21 2:00 pm Jose Martin Miles MD [Primary Care Provider] - 1-2 days Activity/Diet/Wound Care/Special Instructions: Activity and diet as tolerated. Avoid the use of street drugs and alcohol. Take all medications as prescribed. When you are in need of refills on your medications please contact your medical provider and/or outpatient psychiatrist to have this done. Please go to scheduled outpatient appointment for aftercare treatment. If symptoms return or become worse, call the crisis line at and/or go to the nearest emergency room for evaluation Discharge Disposition: HOME SELF-CARE
== END 2021-06-27 11:43 | disposition home or self-care (01) | DRG 885 ==
LOC: EC 10:42 → 3MHU 15:01
PROVIDERS: ADMIT Psychiatry & Neurology Psychiatry; ATTEND Psychiatry & Neurology Psychiatry
DX: F31.10 Bipolar disorder, current episode manic without psychotic features, unspecified (principal); R45.851 Suicidal ideations; Z20.822 Contact with and (suspected) exposure to COVID-19; F12.10 Cannabis abuse, uncomplicated; F22 Delusional disorders; F41.9 Anxiety disorder, unspecified; F60.3 Borderline personality disorder; G47.00 Insomnia, unspecified; Z78.1 Physical restraint status; Z79.899 Other long term (current) drug therapy
CPT/HCPCS: 80053; 80061; 80178; 80306; 81001; 81025; 82075; 82248; 83036; 84443; 85025; 87635; 99285